=== PATIENT | male | born 1950 | race Caucasian/White ===

== ENCOUNTER → 2016-04-22 | Outpatient (CLI) | payer BC ==
--- NOTE | 2016-04-22 15:20 | US ---
EXAMINATION TYPE: US carotid duplex BILAT DATE OF EXAM: 04/22/2016 2:36 PM COMPARISON: No previous CLINICAL HISTORY: Z82.49 Fam hx heart disease, E78.2 Hyperlipidemia. Hyperlipidemia, family history o f heart disease EXAM MEASUREMENTS: RIGHT: Peak Systolic Velocity (PSV) cm/sec ----- Right CCA: 87.9 ----- Right ICA: 91.0 ----- Right ECA: 141.6 ICA/CCA ratio: 1.0 RIGHT: End Diastole cm/sec ----- Right CCA: 21.0 ----- Right ICA: 32.6 ----- Right ECA: 20.4 LEFT: Peak Systolic Velocity (PSV) cm/sec ----- Left CCA: 107.7 ----- Left ICA: 103.1 ----- Left ECA: 104.4 ICA/CCA ratio: 1.0 LEFT: End Diastole cm/sec ----- Left CCA: 26.8 ----- Left ICA: 25.4 ----- Left ECA: 18.9 VERTEBRALS (direction of flow): Right Vertebral: Antegrade Left Vertebral: Antegrade IMPRESSION: Bilateral intimal thickening, minimal plaque bilateral bulb, elevated velocities: right mid ECA and left proximal CCA, no significant stenosis Criteria for Assigning % of Stenosis / Diameter reduction (Estimation based on the indirect measurements of the internal carotid artery velocities (ICA PSV). 1. Normal (no stenosis)=ICA PSV < 125 cm/s: ratio < 2.0: ICA EDV<40 cm/s. 2. Less than 50% stenosis=ICA PSV < 125 cm/s: ratio < 2.0: ICA EDV<40 cm/s. 3. 50 to 69% stenosis=ICA PSV of 125 to 230 cm/s: ration 2.0 ? 4.0: ICA EDV 40-100 cm/s. 4. Greater than 70% stenosis to near occlusion= ICA PSV > 230 cm/s: ratio > 4.0: ICA EDV > 100 cm/s. 5. Near occlusion= ICA PSV velocities may be low or undetectable: variable ratio and ICA EDV. 6. Total occlusion=unable to detect flow.
== END | disposition home or self-care (01) ==
LOC: RADUSWWP 14:12
PROVIDERS: ATTEND Family Medicine
DX: I65.23 Occlusion and stenosis of bilateral carotid arteries (principal); E78.2 Mixed hyperlipidemia; Z82.49 Family history of ischemic heart disease and other diseases of the circulatory system
CPT/HCPCS: 93880

== ENCOUNTER → 2017-04-16 | Outpatient (CLI) | payer MEDICARE, BC ==
--- NOTE | 2017-04-16 16:35 | XR ---
EXAMINATION TYPE: XR ankle complete RT DATE OF EXAM: 04/16/2017 COMPARISON: NONE HISTORY: 67-year-old male with right ankle pain TECHNIQUE: 3 views FINDINGS: Degenerative spurring about the ankle joint. There is a 6 mm anterior loose body in likely an additio nal 4 mm loose body interposed at the talofibular joint. There is a focal area of subchondral bony ir regularity measuring 4 mm wide at the mid talar dome. Ankle mortise otherwise remains congruent. No a cute fracture or dislocation seen. 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
== END | disposition home or self-care (01) ==
LOC: RADXRYALE 15:58
PROVIDERS: ATTEND Family Medicine
DX: M19.071 Primary osteoarthritis, right ankle and foot (principal)

== ENCOUNTER → 2017-09-15 | Outpatient (CLI) | payer MEDICARE, BC ==
--- NOTE | 2017-09-15 15:46 | US ---
EXAMINATION TYPE: US carotid duplex BILAT DATE OF EXAM: 09/15/2017 COMPARISON: NONE CLINICAL HISTORY: G45.3 Amaurosis Fugax. Temporary loss of vision in right eye EXAM MEASUREMENTS: RIGHT: Peak Systolic Velocity (PSV) cm/sec ----- Right CCA: 84.2 ----- Right ICA: 70.2 ----- Right ECA: 114.5 ICA/CCA ratio: 0.8 RIGHT: End Diastole cm/sec ----- Right CCA: 21.7 ----- Right ICA: 29.6 ----- Right ECA: 16.0 LEFT: Peak Systolic Velocity (PSV) cm/sec ----- Left CCA: 76.6 ----- Left ICA: 79.2 ----- Left ECA: 84.5 ICA/CCA ratio: 1.0 LEFT: End Diastole cm/sec ----- Left CCA: 21.0 ----- Left ICA: 31.6 ----- Left ECA: 10.4 VERTEBRALS (direction of flow): Right Vertebral: Antegrade Left Vertebral: Antegrade Rhythm: Normal Minimal amount of plaque visualized bilaterally. No elevated velocities, no significant stenosis. IMPRESSION: 1. Atheromatous plaquing without significant flow-limiting stenosis. Criteria for Assigning % of Stenosis / Diameter reduction (Estimation based on the indirect measurements of the internal carotid artery velocities (ICA PSV). 1. Normal (no stenosis)=ICA PSV < 125 cm/s: ratio < 2.0: ICA EDV<40 cm/s. 2. Less than 50% stenosis=ICA PSV < 125 cm/s: ratio < 2.0: ICA EDV<40 cm/s. 3. 50 to 69% stenosis=ICA PSV of 125 to 230 cm/s: ration 2.0 ? 4.0: ICA EDV 40-100 cm/s. 4. Greater than 70% stenosis to near occlusion= ICA PSV > 230 cm/s: ratio > 4.0: ICA EDV > 100 cm/s. 5. Near occlusion= ICA PSV velocities may be low or undetectable: variable ratio and ICA EDV. 6. Total occlusion=unable to detect flow.
--- NOTE | 2017-09-17 14:00 | ECHOF ---
Referral Reason:G45.3 Amaurosis Fugax MEASUREMENTS -------- HEIGHT: 175.3 cm WEIGHT: 79.4 kg BP: 141/81 RVIDd: 3.3 cm (< 3.3) IVSd: 0.9 cm (0.6 - 1.1) LVIDd: 3.9 cm (3.9 - 5.3) LVPWd: 0.9 cm (0.6 - 1.1) IVSs: 1.2 cm LVIDs: 2.4 cm LVPWs: 1.2 cm LAESV Index (A-L): 22.76 ml/m Ao Diam: 3.1 cm (2.0 - 3.7) AV Cusp: 2.2 cm (1.5 - 2.6) LA Diam: 3.2 cm (2.7 - 3.8) EPSS: 0.3 cm MV E Deangelo: 0.65 m/s MV DecT: 273 ms MV A Deangelo: 0.65 m/s MV E/A Ratio: 1.02 RAP: 10.00 mmHg RVSP: 20.12 mmHg MV EF SLOPE: 96.99 mm/s (70 - 150) MV EXCURSION: 1.73 cm (> 18.000) FINDINGS -------- Resting bradycardia (HR<60bpm). This was a technically good study. The left ventricular size is normal. Left ventricular wall thickness is normal. Overall left vent ricular systolic function is normal with, an EF between 55 - 60 %. The right ventricle is mildly enlarged. Normal LA size by volume 22+/-6 ml/m2. RA appears enlarged. Aortic valve is trileaflet and is mildly thickened. The mitral valve leaflets are mildly thickened. Moderate mitral regurgitation is present. Mild tricuspid regurgitation present. Right ventricular systolic pressure is normal at < 35 mmHg. There is no evidence of pulmonary hypertension. Trace/mild (physiologic) pulmonic regurgitation. The aortic root size is normal. The IVC is dilated with normal collapse. There is no pericardial effusion. CONCLUSIONS -------- 1. Resting bradycardia (HR<60bpm). 2. This was a technically good study. 3. The left ventricular size is normal. 4. Left ventricular wall thickness is normal. 5. Overall left ventricular systolic function is normal with, an EF between 55 - 60 %. 6. The right ventricle is mildly enlarged. 7. Normal LA size by volume 22+/-6 ml/m2. 8. RA appears enlarged. 9. Aortic valve is trileaflet and is mildly thickened. 10. The mitral valve leaflets are mildly thickened. 11. Moderate mitral regurgitation is present. 12. Mild tricuspid regurgitation present. 13. Right ventricular systolic pressure is normal at < 35 mmHg. 14. There is no evidence of pulmonary hypertension. 15. Trace/mild (physiologic) pulmonic regurgitation. 16. The aortic root size is normal. 17. The IVC is dilated with normal collapse. 18. There is no pericardial effusion. [employer] OPERATOR: Diony Burt RDCS
== END | disposition home or self-care (01) ==
LOC: RADECHMAIN 14:56
PROVIDERS: ATTEND Family Medicine
DX: I65.23 Occlusion and stenosis of bilateral carotid arteries (principal); I08.3 Combined rheumatic disorders of mitral, aortic and tricuspid valves
CPT/HCPCS: 93306; 93880

== ENCOUNTER → 2019-04-19 | Outpatient (CLI) | payer MEDICARE, BC ==
--- NOTE | 2019-04-19 15:12 | US ---
EXAMINATION TYPE: US kidneys/renal and bladder DATE OF EXAM: 04/19/2019 COMPARISON: NONE CLINICAL HISTORY: N18.3 CHR KIDNEY DISEASE,R97.720 ELEVATED PROSTATE. CKD EXAM MEASUREMENTS: Right Kidney: 9.7 x 5.0 x 4.4 cm Left Kidney: 11.7 x 5.2 x 3.4 cm Prominent prostate visualized. Right Kidney: No hydronephrosis or nephrolithiasis seen Left Kidney: No hydronephrosis or nephrolithiasis seen Bladder: Anechoic but limited due to incomplete distention Bilateral Jets seen: Yes There is no evidence for hydronephrosis at this point in time. No nephrolithiasis is seen. No mg s are identified. The urinary bladder is anechoic. Bilateral ureteral jets are seen. Cortical medul cathy differentiation is maintained. IMPRESSION: No acute process. Bladder somewhat limited by incomplete distention.
== END | disposition home or self-care (01) ==
LOC: RADUSWWP 14:28
PROVIDERS: ATTEND Family Medicine
DX: N32.89 Other specified disorders of bladder (principal); N18.3 Chronic kidney disease, stage 3 (moderate)
CPT/HCPCS: 76770

== ENCOUNTER → 2022-04-28 | Outpatient (CLI) | payer MEDICARE, BC ==
--- NOTE | 2022-04-28 12:23 | XR ---
EXAMINATION TYPE: XR shoulder complete RT DATE OF EXAM: 04/28/2022 COMPARISON: NONE HISTORY: Pain TECHNIQUE: Three views are submitted. FINDINGS: The osseous structures are intact. There is no acute fracture or dislocation. There is AC joint arth ropathy correlate for chronic rotator cuff disease. Subsegmental changes right lung base most likely atelectasis. IMPRESSION: 1. Severe AC joint arthropathy correlate to rotator cuff disease. Follow-up MRI can be obtained as cl inically warranted. 2. Subsegmental changes right lung base for which atelectasis is favored
== END | disposition home or self-care (01) ==
LOC: RADXRYALE 12:04
PROVIDERS: ATTEND Family Medicine
DX: M19.011 Primary osteoarthritis, right shoulder (principal)